=== PATIENT | female | born 1965 | race Hispanic/Latino ===

== ENCOUNTER 2022-07-14 15:36 | Inpatient (IN) | payer BC ==
[2022-07-14] MEDS ORDERED: Diltiazem 125 MG/25 ML FS SCH (15:45)
[2022-07-14] MEDS ORDERED: Enoxaparin Sodium 60 MG/0.6 ML SYRINGE ONE (16:23)
[2022-07-14 16:55] LABS: CKMB 1.8 ng/mL (0-6.6)
[2022-07-14 16:58] LABS: SARS-CoV-2 NAA Rapid Test Not Detected (NotDetected)
[2022-07-14 17:43] VITALS: BMI 32.2
[2022-07-14] MEDS ORDERED: Digoxin 0.5 MG/2 ML AMP SLOW IVP SCH ×2 (18:00→23:00)
[2022-07-14] MEDS: Sodium Chloride 0.9% 1,000 ML IV SCH ×2 (18:15→21:55)
[2022-07-14 18:23] VITALS: TEMP 96.6
[2022-07-14] MEDS ORDERED: Zolpidem Tartrate 5 MG TAB PO PRN (18:25)
[2022-07-14] MEDS ORDERED: Ondansetron ODT 4 MG TAB PO PRN (18:25)
[2022-07-14] MEDS ORDERED: HYDROcodone/Acetaminophen 5/325 mg Tablet PO PRN (18:25)
[2022-07-14] MEDS ORDERED: Acetaminophen 325 MG TAB PO PRN (18:25)
[2022-07-14] MEDS ORDERED: Loperamide HCl 2 MG CAP PO PRN (18:25)
[2022-07-14] MEDS ORDERED: Senokot S 8.6-50 MG TAB PO PRN (18:25)
[2022-07-14] MEDS ORDERED: Meclizine HCl 25 MG TAB PO PRN (18:37)
[2022-07-14] MEDS ORDERED: FLU VACC QS2022-23(6MOS UP)/PF 60 MCG/0.5 ML SYRINGE IM ONE (18:45)
[2022-07-14] MEDS ORDERED: Dextrose 5% in Water 1,000 ML IV PRN (19:05)
[2022-07-14] MEDS ORDERED: Dextrose 50% Abboject 50 ML SYRINGE SLOW IVP PRN (19:05)
[2022-07-14] MEDS ORDERED: Insulin Regular 300 UNITS/3 ML VIAL SC PRN (19:05)
[2022-07-14] MEDS ORDERED: Labetalol HCl 100 MG/20 ML VIAL SLOW IVP PRN (19:15)
[2022-07-14] MEDS ORDERED: Dronedarone HCl 400 MG TAB PO SCH (20:00)
[2022-07-14 20:42] LABS: Troponin I 0.215 ng/mL (< 0.028)
[2022-07-14] MEDS ORDERED: Atorvastatin Calcium 20 MG TAB PO SCH (21:00)
[2022-07-14] MEDS ORDERED: Lantus 1000 UNITS/10 ML VIAL SC SCH (21:00)
[2022-07-14] MEDS: Apixaban 5 MG TAB PO SCH (21:51)
[2022-07-14] MEDS: Famotidine 20 MG TAB PO SCH (21:52)
[2022-07-14 22:28] LABS: Troponin I 0.293 ng/mL (< 0.028)
[2022-07-15] MEDS: Metoprolol Tartrate 25 MG TAB PO SCH ×2 (05:07→10:07)
[2022-07-15] MEDS: Sodium Chloride 0.9% 1,000 ML IV SCH (05:48)
[2022-07-15] MEDS ORDERED: Digoxin 0.5 MG/2 ML AMP SLOW IVP SCH (06:00)
[2022-07-15 06:05] LABS: #Basophils 0.1 10x3/uL (0.0-0.2); #Eosinphils 0.1 10x3/uL (0.0-0.5); #Monocytes 0.5 10x3/uL (0.0-1.1); #Neutrophils 3.8 10x3/uL (1.5-8.4); %Basophils 0.6 % (0.0-2.0); %Eosinophils 1.4 % (0.0-6.0); %Lymphocytes 43.2 % (18.0-47.0); %Monocytes 6.7 % (0.0-10.0); %Neutrophils 47.8 % (40.0-75.0); Hemoglobin 11.6 g/dL (12.0-15.5); Mean Corpuscular HGB CONC 32.1 g/dL (32.0-36.0); Mean Corpuscular Volume 84.1 fl (81.6-98.3); Mean Platelet Volume 9.9 fl (7.4-10.4); Platelet Count 398 10x3/uL (150-450); RBC Distribution Width 13.3 % (11.5-14.5); Red Blood Cell (RBC) Count 4.29 10x6/uL (3.90-5.03); White Blood Cell (WBC) Count 7.9 10x3/uL (3.5-10.5)
[2022-07-15 06:36] LABS: ALT (SGPT) 19 U/L (8-55); AST (SGOT) 21 U/L (5-34); Alkaline Phosphatase 106 U/L (40-110); Anion Gap 10 mmol/L (10-20); BUN (Urea Nitrogen) 14 mg/dL (9.8-20.1); Bilirubin, Total 0.2 mg/dL (0.2-1.2); Calc. Creatinine Clearance 134 mL/min (70-130); Calcium 8.1 mg/dL (7.8-10.44); Carbon Dioxide 21 mmol/L (22-29); Chloride 114 mmol/L (98-107); Estimated GFR 111; Globulin 2.4 g/dL (2.4-3.5); Glucose 77 mg/dL (70-105); Potassium 3.4 mmol/L (3.5-5.1); Protein, Total 5.4 g/dL (6.0-8.3); Sodium 142 mmol/L (136-145)
[2022-07-15] MEDS ORDERED: Dronedarone HCl 400 MG TAB PO SCH (08:00)
[2022-07-15] MEDS: Famotidine 20 MG TAB PO SCH (08:12)
[2022-07-15] MEDS: Apixaban 5 MG TAB PO SCH (08:12)
[2022-07-15] MEDS ORDERED: FLU VACC QS2022-23(6MOS UP)/PF 60 MCG/0.5 ML SYRINGE IM ONE (08:30)
[2022-07-15] MEDS ORDERED: LISINOPRIL 40 MG PO SCH (09:00)
[2022-07-15 12:54] LABS: Hemoglobin A1c 13.3 % (4.0-6.0)
[2022-07-15 15:37] VITALS: BP 124/71
[2022-07-16] MEDS ORDERED: Lisinopril 5 MG TAB PO SCH (09:00)
== END 2022-07-15 16:45 | disposition home or self-care (01) | DRG 310 ==
LOC: CSHERS 15:36 → CSHIMCU 17:02
PROVIDERS: ADMIT Family Medicine; ATTEND Family Medicine
DX: I48.91 Unspecified atrial fibrillation (principal); K21.9 Gastro-esophageal reflux disease without esophagitis; I10 Essential (primary) hypertension; E78.5 Hyperlipidemia, unspecified; R42 Dizziness and giddiness; E11.69 Type 2 diabetes mellitus with other specified complication; E11.65 Type 2 diabetes mellitus with hyperglycemia; Z20.822 Contact with and (suspected) exposure to COVID-19; Z98.890 Other specified postprocedural states; Z79.84 Long term (current) use of oral hypoglycemic drugs; Z79.4 Long term (current) use of insulin; Z79.899 Other long term (current) drug therapy
CPT/HCPCS: 36415; 36416; 80053; 82553; 83036; 85025; 90471; 90686; 93005; 93010; 93306; G0008; J1160; J1650; J1815; J7050